=== PATIENT | male | born 1990 | race Two or more races ===

== ENCOUNTER 2019-09-05 15:15 | Emergency (ER) | payer MEDICAID ==
[~2019-09-05] VITALS: Ht 165.1 cm; Wt 75.0 kg
[2019-09-05] MEDS ORDERED: IBUPROFEN 800MG TABLET PO ONE (17:15)
[2019-09-05 18:23] LABS: BASOPHILS % 0.8 % (0.0-2.0); EOSINOPHILS % 1.3 % (0.0-5.0); HEMATOCRIT. 47.5 % (42.0-52.0); HEMOGLOBIN. 16.4 g/dL (14.0-18.0); LYMPHOCYTES % 18.5 % (20.0-50.0); MEAN CORPUSCULAR HEMOGLOBIN 30.2 pg (28.0-32.0); MEAN CORPUSCULAR VOLUME 87.7 fL (80.0-94.0); MEAN PLATELET VOLUME 9.2 fl (7.4-10.4); MONOCYTES % 5.9 % (2.0-8.0); NEUTROPHILS % 73.5 % (40.0-76.0); PLATELET 252 x1000/uL (130-400); RED BLOOD CELL COUNT 5.42 mill/uL (4.7-6.1); RED CELL DISTRIBUTION WIDTH 13.6 % (11.6-14.6)
[2019-09-05 18:25] VITALS: BP 140/89
[2019-09-05 18:29] LABS: CHLORIDE 104 mEq/L (98-107)
== END 2019-09-05 19:13 | disposition home or self-care (01) ==
LOC: ER 15:15
DX: R10.31 Right lower quadrant pain (principal)
CPT/HCPCS: 36415; 74021; 76705; 80053; 85025; 99285

== ENCOUNTER 2020-04-02 12:49 | Emergency (ER) | payer MEDICAID ==
[~2020-04-02] VITALS: Ht 165.1 cm; Wt 68.0 kg
[2020-04-02] MEDS ORDERED: CEFTRIAXONE SODIUM 250 MG/VIAL IM ONE (13:45)
[2020-04-02] MEDS ORDERED: AZITHROMYCIN 500 MG TABLET PO ONE (13:45)
[2020-04-02 15:33] LABS: CLARITY URINE CLEAR (CLEAR); COLOR URINE YELLOW (YELLOW); KETONES URINE NEGATIVE (NEGATIVE); LEUKOCYTE ESTERASE URINE 1+ (NEGATIVE); NITRITE URINE NEGATIVE (NEGATIVE); OCCULT BLOOD URINE NEGATIVE (NEGATIVE); PROTEIN URINE NEGATIVE (NEGATIVE); SPECIFIC GRAVITY URINE 1.017 (1.005-1.030)
[2020-04-02 16:20] VITALS: BP 122/78
[2020-04-06 04:16] LABS: NEISSERIA GONORRHOEAE NAA Negative (Negative)
== END 2020-04-02 16:21 | disposition home or self-care (01) ==
LOC: ER 12:49
DX: R07.89 Other chest pain (principal); Z91.040 Latex allergy status
CPT/HCPCS: 71111; 81003; 87491; 87591; 96372; 99284; J0696

== ENCOUNTER 2021-01-26 18:15 | Emergency (ER) | payer MEDICAID ==
[~2021-01-26] VITALS: Ht 167.6 cm; Wt 75.0 kg
[2021-01-26 18:28] VITALS: BP 139/82
[2021-01-26] MEDS ORDERED: IBUPROFEN 600MG TABLET PO ONE (19:15)
[2021-01-26] MEDS ORDERED: IBUP-2028 MT (19:16)
[2021-01-26] MEDS ORDERED: AMOX-494 MT (20:17)
== END 2021-01-26 20:32 | disposition home or self-care (01) ==
LOC: ER 18:15
DX: J02.9 Acute pharyngitis, unspecified (principal); J02.0 Streptococcal pharyngitis; Z91.040 Latex allergy status
CPT/HCPCS: 87430; 99283

== ENCOUNTER 2021-08-08 18:03 | Emergency (ER) | payer MEDICAID ==
[~2021-08-08] VITALS: Ht 165.1 cm; Wt 75.0 kg
[~2021-08-08 18:03] MED LIST: AMOX-494 MT; IBUP-2028 MT
[2021-08-08 18:09] VITALS: BP 153/87
== END 2021-08-08 21:02 | disposition left against medical advice (07) ==
LOC: ER 18:03
DX: Z53.21 Procedure and treatment not carried out due to patient leaving prior to being seen by health care provider (principal); I49.9 Cardiac arrhythmia, unspecified
CPT/HCPCS: 93005

== ENCOUNTER 2021-08-14 08:00 | Emergency (ER) | payer MEDICAID ==
[~2021-08-14] VITALS: Ht 165.1 cm; Wt 73.0 kg
[2021-08-14 08:08] VITALS: BP 143/74
[2021-08-14 09:19] LABS: CLARITY URINE TURBID (CLEAR); COLOR URINE YELLOW (YELLOW); KETONES URINE 1+ (NEGATIVE); LEUKOCYTE ESTERASE URINE NEGATIVE (NEGATIVE); NITRITE URINE NEGATIVE (NEGATIVE); OCCULT BLOOD URINE NEGATIVE (NEGATIVE); PH URINE 5.5 (4.5-8.0); PROTEIN URINE NEGATIVE (NEGATIVE); SPECIFIC GRAVITY URINE 1.022 (1.005-1.030)
[2021-08-14] MEDS ORDERED: IBUPROFEN 600MG TABLET PO ONE (10:00)
[2021-08-14] MEDS ORDERED: IBUP-2029 MT (10:56)
== END 2021-08-14 11:40 | disposition home or self-care (01) ==
LOC: ER 08:00
DX: R07.89 Other chest pain (principal); Z91.040 Latex allergy status
CPT/HCPCS: 71046; 81003; 99284

== ENCOUNTER 2022-10-02 09:22 | Emergency (ER) | payer MEDICAID ==
[~2022-10-02] VITALS: Ht 165.1 cm; Wt 73.0 kg
[~2022-10-02 09:22] MED LIST changes: +IBUP-2029 MT
[2022-10-02 09:46] LABS: BASOPHILS % 0.6 % (0.0-2.0); EOSINOPHILS % 2.9 % (0.0-5.0); HEMATOCRIT. 46.6 % (42.0-52.0); HEMOGLOBIN. 16.3 g/dL (14.0-18.0); MEAN CORPUSCULAR HEMOGLOBIN 31.7 pg (28.0-32.0); MEAN CORPUSCULAR VOLUME 90.7 fL (80.0-94.0); MEAN PLATELET VOLUME 8.7 fl (7.4-10.4); MONOCYTES % 9.3 % (2.0-8.0); NEUTROPHILS % 51.2 % (40.0-76.0); PLATELET 242 x1000/uL (130-400); RED BLOOD CELL COUNT 5.14 mill/uL (4.7-6.1); RED CELL DISTRIBUTION WIDTH 13.9 % (11.6-14.6)
[2022-10-02 09:54] LABS: CHLORIDE 103 mEq/L (98-107)
[2022-10-02] MEDS ORDERED: ACETAMINOPHEN 325MG TABLET PO STA (11:51)
[2022-10-02 11:52] LABS: CLARITY URINE CLEAR (CLEAR); COLOR URINE YELLOW (YELLOW); KETONES URINE NEGATIVE (NEGATIVE); LEUKOCYTE ESTERASE URINE 1+ (NEGATIVE); NITRITE URINE NEGATIVE (NEGATIVE); OCCULT BLOOD URINE NEGATIVE (NEGATIVE); PROTEIN URINE TRACE (NEGATIVE); SPECIFIC GRAVITY URINE 1.025 (1.005-1.030)
[2022-10-02] MEDS ORDERED: ACET-2708 PO (12:14)
[2022-10-02] MEDS ORDERED: DOCU-150 MT (12:14)
[2022-10-02] MEDS ORDERED: DOXY100T28 PO (12:14)
[2022-10-02] MEDS ORDERED: FAMO20TA8 MT (12:14)
[2022-10-02] MEDS ORDERED: SIME80TA15 MT (12:14)
[2022-10-02 13:05] VITALS: BP 127/86
== END 2022-10-02 13:06 | disposition home or self-care (01) ==
LOC: ER 09:25
DX: M94.0 Chondrocostal junction syndrome [Tietze] (principal); J20.9 Acute bronchitis, unspecified
CPT/HCPCS: 36415; 71045; 80053; 81003; 85025; 99284

== ENCOUNTER 2023-08-21 07:27 | Emergency (ER) | payer MEDICAID ==
[~2023-08-21] VITALS: Ht 165.1 cm; Wt 72.6 kg
[~2023-08-21 07:27] MED LIST changes: +ACET-2708 PO; +DOCU-150 MT; +DOXY100T28 PO; +FAMO20TA8 MT; +SIME80TA15 MT
[2023-08-21 07:55] VITALS: O2SAT 98
[2023-08-21] MEDS ORDERED: OFLO5DRO4 LEFT EAR (08:33)
[2023-08-21 08:58] VITALS: BP 136/70; PULSE 73; RESP 18; TEMP 98.7
== END 2023-08-21 09:06 | disposition home or self-care (01) ==
LOC: ER 07:27
DX: H60.502 Unspecified acute noninfective otitis externa, left ear (principal); Z91.040 Latex allergy status
CPT/HCPCS: 99283